=== PATIENT | female | born 1985 | race Caucasian/White ===

== ENCOUNTER 2022-11-22 11:55 | Emergency (ER) | payer OTHER ==
[2022-11-22 12:17] VITALS: BP 140/94; PULSE 60; RESP 18; TEMP 98; BMI 25.1
[2022-11-22] MEDS ORDERED: ACETAMINOPHEN 1000 MG/100 ML BAG IVPB ONE (13:17)
[2022-11-22] MEDS ORDERED: METOCLOPRAMIDE HCL INJECTION 10 MG/2 ML VIAL IVPUSH ONE (13:17)
[2022-11-22] MEDS ORDERED: SODIUM CHLORIDE 0.9% 500 ML INFUS.BAG IV ONE (13:17)
[2022-11-22] MEDS ORDERED: FAMOTIDINE 20 MG/50 ML IVPB 20 MG/50 ML MG IVPB ONE ×2 (13:56→16:09)
[2022-11-22] MEDS ORDERED: METOCLOPRAMIDE HCL INJECTION 10 MG/2 ML VIAL ONE (14:26)
[2022-11-22] MEDS ORDERED: ACETAMINOPHEN INJECTION 100 ML IVPB ONE (14:26)
[2022-11-22 14:43] LABS: BASO % 0.3 % (0-2.0); HEMOGLOBIN 14.1 GM/dL (10.7-15.3); MCHC 34.4 g/dl (32.0-36.0); MEAN CELL VOLUME 87.1 fl (80-96); MONO % 2.3 % (3.8-10.2); NEUT % 92.4 % (42.8-82.8); PLATELET COUNT 191 10^3/uL (134-434); RBC 4.71 M/mm3 (3.60-5.2); WHITE BLOOD COUNT 11.2 K/mm3 (4.0-10.0)
[2022-11-22 15:08] LABS: ANISOCYTOSIS 1+; MACROCYTOSIS 0
[2022-11-22 15:10] LABS: POTASSIUM 3.6 mmol/L (3.5-5.1)
[2022-11-22 15:12] LABS: CALCIUM 8.8 mg/dL (8.5-10.1)
[2022-11-22 15:13] LABS: BLOOD UREA NITROGEN 10.4 mg/dL (7-18)
[2022-11-22 15:16] LABS: CREATININE 0.8 mg/dL (0.55-1.3)
[2022-11-22 15:17] LABS: BILIRUBIN,TOTAL 0.6 mg/dL (0.2-1)
[2022-11-22] MEDS ORDERED: LIDOCAINE 5% TOPICAL PATCH TP ONE (15:33)
[2022-11-22] MEDS ORDERED: LIDOCAINE 4% PATCH TP ONE (16:08)
[2022-11-22] MEDS ORDERED: MAG HYDROX/AL HYDROX/SIMETH -MYLANTA- ORAL SUSPENSION PO ONE (16:11)
[2022-11-22] MEDS ORDERED: SUCRALFATE 1 GM TABLET (FP) PO ONE (16:11)
[2022-11-22 16:19] LABS: URINE APPEARANCE CLEAR; URINE BILIRUBIN NEGATIVE (NEGATIVE); URINE COLOR YELLOW; URINE GLUCOSE (UA) NEGATIVE (NEGATIVE); URINE KETONE 2+ (NEGATIVE); URINE LEUK ESTERASE NEGATIVE (NEGATIVE); URINE NITRITE NEGATIVE (NEGATIVE); URINE PROTEIN NEGATIVE (NEGATIVE); URINE UROBILINOGEN 0.2 mg/dL (0.2-1.0)
[2022-11-22 16:21] LABS: HCG,QUALITATIVE URINE Negative
[2022-11-22] MEDS ORDERED: KETOROLAC TROMETHAMINE 15 MG/ML VIAL IVPUSH ONE (16:53)
[2022-11-22] MEDS ORDERED: SUCRALFATE 1 GM TABLET (FP) ONE (17:49)
[2022-11-22] MEDS ORDERED: KETOROLAC TROMETHAMINE 15 MG/ML VIAL ONE (17:50)
[2022-11-22] MEDS ORDERED: MAG HYDROX/AL HYDROX/SIMETH 30 ML UNIT-DOSE CUP ONE (17:50)
[2022-11-22] MEDS ORDERED: LIDOCAINE PATCH REMOVAL MC SCH (22:00)
[2022-11-23] MEDS ORDERED: predniSONE 20 MG TABLET (UD) PO ONE (16:55)
== END 2022-11-22 18:34 | disposition home or self-care (01) ==
LOC: JER 11:55
PROC: 3E033GC Introduction of Other Therapeutic Substance into Peripheral Vein, Percutaneous Approach (ICD-10-PCS; principal; 2022-11-22)
PROC: 3E033NZ Introduction of Analgesics, Hypnotics, Sedatives into Peripheral Vein, Percutaneous Approach (ICD-10-PCS; 2022-11-22)
PROC: 3E033GC Introduction of Other Therapeutic Substance into Peripheral Vein, Percutaneous Approach (ICD-10-PCS; 2022-11-22)
DX: M54.9 Dorsalgia, unspecified (principal); K52.9 Noninfective gastroenteritis and colitis, unspecified; G89.29 Other chronic pain; R11.2 Nausea with vomiting, unspecified; R05.9 Cough, unspecified; R68.83 Chills (without fever); M79.10 Myalgia, unspecified site; R53.1 Weakness
CPT/HCPCS: 36415; 80053; 81003; 83690; 83735; 84703; 85025; 93005; 93010; 99284-25